=== PATIENT | female | born 1950 | race Caucasian/White ===

== ENCOUNTER 2021-04-15 10:51 | Observation (INO) ==
[2021-04-15 14:05] LABS: Basophils # 0.1 10*3/uL (0.0-0.2); Basophils % 0.5 % (0.0-0.8); Eosinophils # 0.2 10*3/uL (0.0-0.87); Eosinophils % 1.1 % (0.00-10.9); Hematocrit 48.6 VOL% (35.7-47.0); Immature Granulocytes % 0.5 %; Immature Granulocytes Absolute 0.11 #; Lymphocytes # 3.6 10*3/uL (1.4-4.0); Lymphocytes % 17.1 % (21.3-54.2); Mean Corpuscular HGB Conc 32.9 GM/DL (32-36); Monocytes % 9.9 % (1.7-12.7); Neutrophils % 70.9 % (38.7-73.9); Platelet Count 263 T/CUMM (130-400); Red Blood Count 5.34 MC/CUMM (3.8-5.5); Red Cell Distribution Width 12.6 % (9.3-17.3); White Blood Count 21.2 T/CUMM (4-12)
[2021-04-15 14:08] LABS: Bilirubin,Urine Negative (Negative); Blood, Urine Negative (Negative); Glucose,Urine (UA) Negative (Negative); Hyaline Casts,Urine 1 /LPF (0-3); Ketones,Urine Negative (Negative); Mucus,Urine Occasional /LPF (Occasional); Nitrite,Urine Negative (Negative); Protein,Urine Negative; RBC,Urine 2 /HPF (0-4); Squamous Epithelial Cell,Urine Occasional /HPF (0-10); Urine Appearance CLEAR (Clear); Urine Color Yellow (Yellow); Urine Specific Gravity 1.021 (1.001-1.035); Urine Urobilinogen < 2.0 EU/DL (0.2-1.0)
[2021-04-15 14:29] LABS: Albumin 4.1 G/DL (3.4-5.0); Bilirubin,Total 0.8 MG/DL (0.20-1.00); Calcium 9.7 MG/DL (8.5-10.1); Osmolality,Calculated 275.8 MOS/KG (273-304); Potassium 3.8 MMOL/L (3.5-5.1); Total Protein 8.2 G/DL (6.4-8.2)
[2021-04-15] MEDS ORDERED: SODIUM CHLORIDE 0.9% 1,000 ML IV STA (14:32)
[2021-04-15 14:45] LABS: Lymphocytes 18 % (20-55); Segmented Neutrophils 75 % (50-85); Total Cells Counted 100
[2021-04-15 14:46] LABS: Reactive Lymphocytes Slight
[2021-04-15 14:47] LABS: Anisocytosis Slight; Platelet Estimate Normal
[2021-04-15 14:48] LABS: Burr Cells Slight
[2021-04-15] MEDS ORDERED: cefOXitin 1,000 MG in SODIUM CHLORIDE 0.9% 100 ML IV STA (15:00)
[2021-04-15] MEDS ORDERED: HYDROmorphone 2 MG/1 ML VIAL IV STA (17:45)
[2021-04-15] MEDS ORDERED: ONDANSETRON 4 MG/2 ML VIAL IV STA (17:46)
[2021-04-15] MEDS ORDERED: HYDROmorphone 2 MG/1 ML VIAL ONE (17:47)
[2021-04-15] MEDS ORDERED: LIDOCAINE 1%/EPI INJ 20 ML VIAL ONE (18:38)
[2021-04-15] MEDS ORDERED: BUPIVACAINE MPF 0.25% 30 ML VIAL ONE (18:38)
[2021-04-15] MEDS ORDERED: TISSUE ADHESIVE 1 EACH APPLICATOR TOP ONE (18:38)
[2021-04-15] MEDS ORDERED: fentaNYL 100 MCG/2 ML VIAL ONE (18:50)
[2021-04-15] MEDS ORDERED: LIDOCAINE 2% 5 ML VIAL ONE (19:00)
[2021-04-15] MEDS ORDERED: DEXMEDETOMIDINE 200 MCG/2 ML VIAL ONE ×2 (19:00→19:17)
[2021-04-15] MEDS ORDERED: propofoL 200 MG/20 ML VIAL IV ONE (19:00)
[2021-04-15] MEDS ORDERED: SUCCINYLCHOLINE 200 MG/10 ML VIAL ONE (19:00)
[2021-04-15] MEDS ORDERED: ROCURONIUM 50 MG/5 ML VIAL IV ONE (19:00)
[2021-04-15] MEDS ORDERED: ONDANSETRON 4 MG/2 ML VIAL ONE (19:21)
[2021-04-15] MEDS ORDERED: DESFLURANE 1 UNIT/15 MINUTE INH ONE (19:22)
[2021-04-15] MEDS ORDERED: GLYCOPYRROLATE 0.4 MG/2 ML VIAL ONE (19:30)
[2021-04-15] MEDS ORDERED: NEOSTIGMINE 10 MG/10 ML VIAL ONE (19:30)
[2021-04-15] MEDS ORDERED: PHENYLEPHRINE 1 MG/10 ML SYRINGE IV ONE (19:55)
[2021-04-15] MEDS ORDERED: MEPERIDINE 25 MG/1 ML VIAL ONE ×2 (20:08→20:16)
[2021-04-15] MEDS: MEPERIDINE 25 MG/1 ML VIAL IV PRN ×2 (20:10→20:20)
[2021-04-15] MEDS ORDERED: PROMETHAZINE 25 MG/1 ML VIAL ONE (20:16)
[2021-04-15] MEDS ORDERED: ONDANSETRON 4 MG/2 ML VIAL IV PRN ×2 (20:21→20:57)
[2021-04-15] MEDS ORDERED: PROMETHAZINE INJ 25 MG in SODIUM CHLORIDE 0.9% 50 ML IV PRN (20:21)
[2021-04-15] MEDS ORDERED: PROMETHAZINE 25 MG/1 ML VIAL IM PRN (20:57)
[2021-04-15] MEDS ORDERED: KETOROLAC 15 MG/1 ML VIAL IV PRN (20:57)
[2021-04-15] MEDS ORDERED: HYDROmorphone 2 MG/1 ML VIAL IV PRN (20:57)
[2021-04-15] MEDS ORDERED: CEFUROXIME 500 MG TABLET PO SCH (21:00)
[2021-04-15] MEDS: LACTATED RINGERS 1,000 ML IV SCH (21:31)
[2021-04-16] MEDS: LACTATED RINGERS 1,000 ML IV SCH (04:58)
[2021-04-16 11:14] VITALS: BP 101/45
[2021-04-16] MEDS ORDERED: ENOXAPARIN 40 MG/0.4 ML SYRINGE SUBCUT SCH (14:00)
== END 2021-04-16 12:44 | disposition home or self-care (01) ==
LOC: N.ED 10:51 → N.EDINP 10:51 → N.3E 20:43
PROVIDERS: ADMIT Surgery; ATTEND Surgery